=== PATIENT | male | born 1960 | race Caucasian/White ===

== ENCOUNTER 2020-04-07 15:58 | Outpatient (CLI) | payer MEDICARE, MEDICAID, SELFPAY ==
--- NOTE | 2020-04-07 16:18 | MR_ITS ---
WS: [id number] MRI RIGHT KNEE HISTORY: Internal derangement and pain. RIGHT twisting injury 2 months ago. COMPARISON: None available. Anterior cruciate ligament: Increased T2 signal in the proximal to mid ACL. In the intercondylar notc h there is thinning of the proximal ACL with increased signal consistent with a partial high-grade te ar. Posterior cruciate ligament: Intact but buckling. Medial collateral ligament: Intact but with adjacent edema. Posterior lateral corner structures: Intact. Medial menisci: Increased signal in the posterior horn with fraying along the articular surfaces. Can not confirm a complete tear extending to an articular surface. Most significant abnormal signal is in the posterior horn extending towards inferior surface. Lateral meniscus: Intact. Normal signal, size and shape. Extensor mechanism: Distal quadriceps tendon and patellar tendons are intact. Fluid and soft tissue: Small joint effusion. Small amount of edema around the knee. No Hui's cyst. Osseous and articular structures: Patellofemoral compartment: Normal. Medial compartment: Very mild narrowing medial compartment with thinning of the cartilage. No marrow edema. Lateral compartment: Minimal fissuring of the cartilage. No marrow edema. Small amount of edema in the infrapatellar fat pad. MR/MR knee RT wo con* [id number] IMPRESSION: 1. Partial, high-grade tear ACL. 2. Intrasubstance degeneration posterior medial meniscus. Cannot confirm full- thickness tear. 3. No marrow edema or fracture. 4. Minimal MCL sprain.
== END 2020-04-07 15:59 | disposition home or self-care (01) ==
LOC: RADSHAW 16:08
PROVIDERS: PCP Family Medicine; Visit Provider Family Medicine
DX: S83.511A Sprain of anterior cruciate ligament of right knee, initial encounter (principal); X58.XXXA Exposure to other specified factors, initial encounter
CPT/HCPCS: 73721